=== PATIENT | female | born 1940 | race Hispanic/Latino ===

== ENCOUNTER 2020-02-09 15:25 | Inpatient (IN) | payer MEDICARE, OTHER ==
[~2020-02-09] VITALS: Ht 165.1 cm; Wt 114.5 kg
[2020-02-09 16:36] LABS: BASOPHILS % (AUTO) 0.8 % (0.0-5.0); EOSINOPHILS % (AUTO) 2.2 % (0.0-8.0); HEMATOCRIT 34.6 % (36-48); LYMPHOCYTES % (AUTO) 23.7 % (21.0-51.0); MEAN CORPUSCULAR HEMOGLOBIN 27.9 pg (27.0-33.0); MEAN CORPUSCULAR HGB CONC 31.5 g/dL (32.0-36.0); MEAN CORPUSCULAR VOLUME 88.5 fL (79-99); MONOCYTES % (AUTO) 4.5 % (3.0-13.0); NEUTROPHILS % (AUTO) 68.3 % (40.0-77.0); PLATELET COUNT (AUTO) 325 K/uL (130-400); RED BLOOD CELL COUNT(AUTO) 3.91 MIL/uL (4.00-5.50); RED CELL DISTRIBUTION WIDTH 14.3 % (11.0-15.5); WHITE BLOOD COUNT (AUTO) 13.1 K/uL (4.8-10.8)
[2020-02-09] MEDS ORDERED: METOPROLOL TARTRATE 1 MG/ML 5ML VIAL IV ONE (16:40)
[2020-02-09 16:52] LABS: INR 0.98 (0.85-1.15); PARTIAL THROMBOPLASTIN TIME 19.8 SEC (26.3-35.5); PROTHROMBIN TIME 10.6 SEC (9.6-11.6)
[2020-02-09 16:53] LABS: ALBUMIN 3.2 g/dL (3.5-5.0); BILIRUBIN,TOTAL 0.4 mg/dL (0.2-1.0); CREATININE 1.8 mg/dL (0.5-1.5); POTASSIUM 4.2 mmol/L (3.5-5.1)
[2020-02-09] MEDS ORDERED: DEXTROSE 50%-WATER 50 ML DISP.SYRIN IV ONE (16:57)
[2020-02-09 17:13] LABS: B-TYPE NATRIURETIC PEPTIDE 730 pg/mL (0-100)
[2020-02-09] MEDS ORDERED: ASPIRIN 325 MG TABLET PO SCH (19:00)
[2020-02-09] MEDS ORDERED: CLOPIDOGREL BISULFATE 300 MG TAB PO SCH (19:00)
[2020-02-09] MEDS ORDERED: DEXTROSE 50%-WATER 50 ML DISP.SYRIN IV PRN (19:15)
[2020-02-09] MEDS ORDERED: ACETAMINOPHEN 325 MG TAB PO PRN ×2 (19:15)
[2020-02-09] MEDS ORDERED: ONDANSETRON HCL 4 MG/2 ML VIAL IV PRN (19:15)
[2020-02-09] MEDS ORDERED: GLUCAGON 1MG KIT 1 MG ML IM PRN (19:15)
[2020-02-09] MEDS: HEPARIN SODIUM 5000UNIT/ML 1ML VIAL SQ SCH (19:15)
[2020-02-09] MEDS ORDERED: NITROGLYCERIN 0.4 MG SL TAB SL PRN (19:45)
[2020-02-09] MEDS ORDERED: MORPHINE SULFATE 2 MG/ML 1ML SYG IVP PRN (19:45)
[2020-02-09] MEDS ORDERED: CLOPIDOGREL BISULFATE 300 MG TAB ONE (20:07)
[2020-02-09] MEDS ORDERED: HEPARIN SODIUM 5000UNIT/ML 1ML VIAL ONE (20:07)
[2020-02-09] MEDS ORDERED: METOPROLOL TARTRATE 25 MG TAB ONE (20:08)
[2020-02-09 20:12] LABS: APPEARANCE,URINE Cloudy (CLEAR); BILIRUBIN,URINE Negative (NEGATIVE); COLOR,URINE Yellow (YELLOW); GLUCOSE, URINE (UA) Negative (NEGATIVE); KETONES,URINE Trace mg/dL (NEGATIVE); LEUKOCYTE ESTERASE ,URINE Large (NEGATIVE); NITRATE,URINE Positive (NEGATIVE); OCCULT BLOOD,URINE Negative (NEGATIVE); PROTEIN,URINE POS 1+ mg/dL (NEGATIVE); UROBILINOGEN,URINE 0.2 mg/dL (0.2-1.0)
[2020-02-09 20:21] LABS: BACTERIA,URINE Few /HPF (None Seen); RBC,URINE None Seen /HPF (0-1); WBC,URINE 51-100 /HPF (0-1)
[2020-02-09] MEDS: METOPROLOL TARTRATE 25 MG TAB PO SCH (21:00)
[2020-02-09] MEDS: PANTOPRAZOLE SODIUM 40 MG TABLET.DR PO SCH (21:00)
[2020-02-10] VITALS (10 sets, daily range): BP systolic 85–118; BP diastolic 43–67
[2020-02-10] MEDS ORDERED: DEXTROSE 50%-WATER 50 ML DISP.SYRIN IV ONE (05:48)
[2020-02-10 06:10] LABS: BASOPHILS % (AUTO) 0.8 % (0.0-5.0); EOSINOPHILS % (AUTO) 3.6 % (0.0-8.0); HEMATOCRIT 30.7 % (36-48); LYMPHOCYTES % (AUTO) 24.9 % (21.0-51.0); MEAN CORPUSCULAR HEMOGLOBIN 27.9 pg (27.0-33.0); MEAN CORPUSCULAR HGB CONC 30.9 g/dL (32.0-36.0); MEAN CORPUSCULAR VOLUME 90.3 fL (79-99); MONOCYTES % (AUTO) 5.9 % (3.0-13.0); NEUTROPHILS % (AUTO) 64.4 % (40.0-77.0); PLATELET COUNT (AUTO) 232 K/uL (130-400); RED CELL DISTRIBUTION WIDTH 14.4 % (11.0-15.5); WHITE BLOOD COUNT (AUTO) 10.4 K/uL (4.8-10.8)
[2020-02-10 06:51] LABS: HEMOGLOBIN A1C 6.9 % (4.0-6.0)
[2020-02-10 07:03] LABS: ALBUMIN 2.4 g/dL (3.5-5.0); BILIRUBIN,TOTAL 0.4 mg/dL (0.2-1.0); CREATININE 1.5 mg/dL (0.5-1.5); MAGNESIUM 1.7 mg/dL (1.80-2.40); POTASSIUM 3.9 mmol/L (3.5-5.1); TOTAL PROTEIN, SERUM 6.3 g/dL (6.0-8.3)
[2020-02-10 07:06] LABS: TROPONIN I 10.51 ng/mL (0.00-0.06)
[2020-02-10] MEDS: HEPARIN SODIUM 5000UNIT/ML 1ML VIAL SQ SCH (07:15)
[2020-02-10] MEDS ORDERED: ENOXAPARIN SODIUM 1 MG/KG SQ SCH (09:00)
[2020-02-10] MEDS ORDERED: ASPIRIN 81MG TAB.CHEW PO SCH (09:00)
[2020-02-10] MEDS: METOPROLOL TARTRATE 25 MG TAB PO SCH ×2 (09:00→21:26)
--- NOTE | 2020-02-10 09:00 | NUR ---
INITIAL MET W PATIENT FOR INITIA ASSESSMENT , ADMITTED DUE TO ELEVATED TROPONINS PATIENT STATES LIVES W [place] WHO WILL PROVIDE TRANSPORT.[facility] AND VEHICLE TO CARRY TI. USES IT OUT OF THE HOME- IN HOME HAS [employer] AND [place] - HOME SAFE AND ACCESSIBLE, DESCRIBED HER SELF INDEPENDENT, NO DC NEEDS ANTICIPATED, DCP PLAN IS HOME Addendum: 02/11/20 at 1933 by SELINA SPARROW RN CM Amended: Links added.
[2020-02-10] MEDS ORDERED: ENAL2.5T16 PO (09:19)
[2020-02-10] MEDS ORDERED: ATOR40TA71 PO (09:19)
[2020-02-10] MEDS ORDERED: CALC-21 PO (09:19)
[2020-02-10] MEDS ORDERED: CHOL2000 PO (09:19)
[2020-02-10] MEDS ORDERED: OMEP40CA13 PO (09:19)
[2020-02-10] MEDS ORDERED: LORA10TA7 PO (09:19)
[2020-02-10] MEDS ORDERED: ICOS1CAP PO (09:19)
[2020-02-10] MEDS ORDERED: GLIP10TA9 PO (09:19)
[2020-02-10] MEDS ORDERED: INSU100I3 SQ (09:19)
[2020-02-10] MEDS ORDERED: INSU200I4 SQ (09:19)
[2020-02-10] MEDS ORDERED: DULA0.75 SQ (09:19)
[2020-02-10] MEDS ORDERED: SODIUM CHLORIDE 0.9% 1000ML 1,000 ML IV SCH ×2 (10:30→15:34)
[2020-02-10] MEDS ORDERED: SODIUM CHLORIDE 0.9% 1000ML 1,000 ML IV ONE (10:34)
[2020-02-10] MEDS ORDERED: NITROGLYCERIN 2 MG/VIAL VIAL IV ONE (13:26)
[2020-02-10] MEDS ORDERED: SODIUM BICARB 50MEQ 50ML VIAL ONE (13:26)
[2020-02-10] MEDS ORDERED: HEPARIN SODIUM 1000UNIT/ML 10ML VIAL ONE (13:26)
[2020-02-10] MEDS ORDERED: IOHEXOL 350 MG/ML 100ML INFUS..BTL IV ONE (13:27)
[2020-02-10] MEDS ORDERED: IOHEXOL-350 50ML VIAL IV ONE (13:27)
[2020-02-10] MEDS ORDERED: LIDOCAINE HCL 2% 20ML ONE (13:27)
[2020-02-10] MEDS ORDERED: MEPERIDINE-PF 25 MG/ML SYG ONE ×3 (13:27→15:04)
[2020-02-10] MEDS ORDERED: MIDAZOLAM HCL 1 MG/ML 2ML VIAL ONE ×3 (13:27→15:03)
[2020-02-10] MEDS ORDERED: NICARDIPINE HCL 25 MG/10 ML ML IV ONE (13:41)
[2020-02-10] MEDS: ASPIRIN 81MG TAB.CHEW PO SCH (16:27)
[2020-02-10] MEDS: PANTOPRAZOLE SODIUM 40 MG TABLET.DR PO SCH ×2 (16:27→21:26)
[2020-02-10] MEDS: CLOPIDOGREL BISULFATE 75 MG TAB PO SCH (16:28)
[2020-02-10] MEDS ORDERED: ATORVASTATIN CALCIUM 40 MG TABLET PO SCH (21:00)
[2020-02-10] MEDS ORDERED: LOSARTAN 50 MG TABLET PO SCH (21:00)
[2020-02-11 01:17] VITALS: BP 100/46
[2020-02-11 04:26] VITALS: BP 103/56
[2020-02-11 04:39] LABS: HEMATOCRIT 32.7 % (36-48); MEAN CORPUSCULAR HEMOGLOBIN 28.1 pg (27.0-33.0); MEAN CORPUSCULAR HGB CONC 29.4 g/dL (32.0-36.0); MEAN CORPUSCULAR VOLUME 95.6 fL (79-99); PLATELET COUNT (AUTO) 153 K/uL (130-400); RED BLOOD CELL COUNT(AUTO) 3.42 MIL/uL (4.00-5.50); RED CELL DISTRIBUTION WIDTH 14.6 % (11.0-15.5); WHITE BLOOD COUNT (AUTO) 8.9 K/uL (4.8-10.8)
[2020-02-11 04:50] LABS: CREATININE 1.5 mg/dL (0.5-1.5); POTASSIUM 4.5 mmol/L (3.5-5.1)
[2020-02-11 07:45] VITALS: BP 107/54
--- NOTE | 2020-02-11 07:50 | NUR ---
NOTE AAOX3. DENIES PAIN OR DISCOMFORT. NO DISTRESS OR SOB OR CHEST PAIN. SHE CAME IN WITH ABNORMAL TROPONIN LEVELS AT PCP OFFICE AFTER SHE WENT IN FOR C/O GERD AND DIAPHORESIS. 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 PENDING PRIMARY TEAM AND CARDIOLOGY TO MAKE ROUNDS.
[2020-02-11] MEDS: METOPROLOL TARTRATE 25 MG TAB PO SCH (08:44)
[2020-02-11] MEDS: PANTOPRAZOLE SODIUM 40 MG TABLET.DR PO SCH (08:44)
[2020-02-11] MEDS: CLOPIDOGREL BISULFATE 75 MG TAB PO SCH (08:44)
[2020-02-11] MEDS: ASPIRIN 81MG TAB.CHEW PO SCH (08:44)
[2020-02-11] MEDS ORDERED: METO25 PO (10:50)
[2020-02-11] MEDS ORDERED: CLOP75TA14 PO (10:50)
[2020-02-11] MEDS ORDERED: LOSA50TA2 PO (10:50)
[2020-02-11] MEDS ORDERED: PANT40TA PO (10:50)
[2020-02-11] MEDS ORDERED: SULF1TAB42 PO (11:02)
--- NOTE | 2020-02-11 11:30 | NUR ---
NOTE DISCHARGE INSTRUCTIONS GIVEN TO PATIENT. VERBALIZED UNDERSTANDING. REFER TO DC SUMMARY FOR DETAILS. I SPOKE TO CHANELL HORAN AND HE GAVE ORDERS OK TO DC WITH MEDS THAT WERE STARTED PER DR DUKE YESTERDAY. DR DUNN MADE ROUNDS AND WROTE RX FOR THAT AND BACTRIM FOR UTI PRESENT ON ARRIVAL. STABLE UPON LEAVING AT THIS TIME.
[2020-02-11] MEDS ORDERED: CEFTRIAXONE SODIUM 1 GM IVP SCH (13:00)
== END 2020-02-11 12:15 | disposition home or self-care (01) | DRG 281 ==
LOC: EDH 15:25 → EDHIP 19:03 → 4BH 02-10 07:55 → 4AH 02-11 09:09 → 4BH 02-11 09:10
PROVIDERS: ADMIT Internal Medicine; ATTEND Internal Medicine
PROC: 4A023N7 Measurement of Cardiac Sampling and Pressure, Left Heart, Percutaneous Approach (ICD-10-PCS; principal; 2020-02-10)
PROC: B2111ZZ Fluoroscopy of Multiple Coronary Arteries using Low Osmolar Contrast (ICD-10-PCS; 2020-02-10)
PROC: B2151ZZ Fluoroscopy of Left Heart using Low Osmolar Contrast (ICD-10-PCS; 2020-02-10)
DX: I21.4 Non-ST elevation (NSTEMI) myocardial infarction (principal); I13.0 Hypertensive heart and chronic kidney disease with heart failure and stage 1 through stage 4 chronic kidney disease, or unspecified chronic kidney disease; N18.4 Chronic kidney disease, stage 4 (severe); Z68.41 Body mass index [BMI] 40.0-44.9, adult; I50.9 Heart failure, unspecified; E66.01 Morbid (severe) obesity due to excess calories; E11.22 Type 2 diabetes mellitus with diabetic chronic kidney disease; E78.5 Hyperlipidemia, unspecified; E11.649 Type 2 diabetes mellitus with hypoglycemia without coma; I25.118 Atherosclerotic heart disease of native coronary artery with other forms of angina pectoris; E11.51 Type 2 diabetes mellitus with diabetic peripheral angiopathy without gangrene; E11.42 Type 2 diabetes mellitus with diabetic polyneuropathy; I87.2 Venous insufficiency (chronic) (peripheral); I34.0 Nonrheumatic mitral (valve) insufficiency; E11.21 Type 2 diabetes mellitus with diabetic nephropathy; I25.5 Ischemic cardiomyopathy; Z92.3 Personal history of irradiation; Z92.21 Personal history of antineoplastic chemotherapy; Z91.19 Patient's noncompliance with other medical treatment and regimen; I25.2 Old myocardial infarction; Z90.11 Acquired absence of right breast and nipple; Z85.3 Personal history of malignant neoplasm of breast
CPT/HCPCS: 36415; 71045; 78582; 80048; 80053; 80061; 81001; 82550; 82948; 83036; 83735; 83874; 83880; 84484; 85025; 85027; 85378; 85610; 85730; 87077; 87088; 87186; 93005; 93306; 93458; 93970; 99156; 99157; 99291; A9540; A9558; C1769; G0378; J1644; J2175; J2250; J3490; J7030; J7070; Q9967

== ENCOUNTER → 2020-04-12 | Outpatient (CLI) | payer OTHER ==
[~2020-04-12] MED LIST: ATOR40TA71 PO; CALC-21 PO; CHOL2000 PO; CLOP75TA14 PO; DULA0.75 SQ; ENAL2.5T PO; GLIP10TA9 PO; ICOS1CAP PO; INSU100I3 SQ; INSU200I4 SQ; LORA10TA7 PO; LOSA50TA2 PO; METO25 PO; PANT40TA PO; SULF1TAB42 PO
== END | disposition home or self-care (01) ==
LOC: SHCH 10:00
PROVIDERS: ATTEND Internal Medicine Cardiovascular Disease
DX: I25.2 Old myocardial infarction (principal); I11.9 Hypertensive heart disease without heart failure
CPT/HCPCS: 93306

== ENCOUNTER → 2021-03-23 | Outpatient (CLI) | payer MEDICARE ==
[~2021-03-23] MED LIST changes: -ENAL2.5T PO; +ENAL2.5T16 PO
== END | disposition home or self-care (01) ==
LOC: SHCH 09:49
PROVIDERS: ATTEND Internal Medicine Cardiovascular Disease
DX: I11.9 Hypertensive heart disease without heart failure (principal); I25.2 Old myocardial infarction
CPT/HCPCS: 93306; 93356

== ENCOUNTER → 2022-03-10 | Outpatient (CLI) | payer MEDICARE ==
[~2022-03-10] MED LIST changes: -CALC-21 PO; +CALC-987 PO; +REGADENOSON 0.4 MG/5 ML PF SYG IVP SCH
== END | disposition home or self-care (01) ==
LOC: SHCH 07:56
PROVIDERS: ATTEND Internal Medicine Cardiovascular Disease
DX: R07.9 Chest pain, unspecified (principal)
CPT/HCPCS: 78452; 93017; 96374; A9500 ×2; J2785

== ENCOUNTER → 2022-11-30 | Outpatient (CLI) | payer MEDICARE ==
[~2022-11-30] MED LIST changes: +CLOP-31 PO; -CLOP75TA14 PO; +DULA3PEN SQ; +EMPA25TA PO; +GABA-529 PO; +METO25TA6 PO; -REGADENOSON 0.4 MG/5 ML PF SYG IVP SCH; +ROSU20TA31 PO
== END | disposition home or self-care (01) ==
LOC: SHCH 13:09
PROVIDERS: ATTEND Internal Medicine Cardiovascular Disease
DX: I51.7 Cardiomegaly (principal); I25.5 Ischemic cardiomyopathy
CPT/HCPCS: 93306

== ENCOUNTER → 2022-12-05 | Outpatient (CLI) | payer MEDICARE ==
[~2022-12-05] MED LIST changes: +REGADENOSON 0.4 MG/5 ML PF SYG IVP SCH
== END | disposition home or self-care (01) ==
LOC: SHCH 09:02
PROVIDERS: ATTEND Internal Medicine Cardiovascular Disease
DX: R07.89 Other chest pain (principal); Z79.899 Other long term (current) drug therapy
CPT/HCPCS: 78452; 96374; 93017; J2785; A9500 ×2